=== PATIENT | male | born 1955 | race Caucasian/White ===

== ENCOUNTER → 2017-03-31 | Outpatient (CLI) | payer OTHER ==
[2017-03-31 12:57] LABS: Basophils % (A) 1 %; CH 31.7; CHCM 33.3; Eosinophils # (A) 0.2 k/uL (0-0.7); Eosinophils % (A) 2 %; HCT 42.1 % (39.0-53.0); HDW 2.52; Luc # (Auto) 0.18; Luc % (Auto) 2; Lymphocytes # (A) 4.5 k/uL (1.0-4.8); Lymphocytes % (A) 51 %; MCH 31.7 pg (25.0-35.0); MCHC 33.2 g/dL (31.0-37.0); MCV 95.5 fL (80.0-100.0); Mean Platelet Volume 7.6; Monocytes # (A) 0.4 k/uL (0-1.0); Monocytes % (A) 5 %; Neutrophils # (A) 3.4 k/uL (1.3-7.7); Neutrophils % (A) 39 %; RBC 4.41 m/uL (4.30-5.90); RDW 13.2 % (11.5-15.5); WBC 8.8 k/uL (3.8-10.6); WBC (Perox) 8.95
[2017-03-31 13:11] LABS: ALT 31 U/L (21-72); AST 24 U/L (17-59); Alkaline Phosphatase 63 U/L (38-126); Anion Gap 10 mmol/L; Blood Urea Nitrogen 17 mg/dL (9-20); Calcium 9.5 mg/dL (8.4-10.2); Carbon Dioxide 25 mmol/L (22-30); Chloride 107 mmol/L (98-107); Cholesterol 95 mg/dL (<200); Glucose 88 mg/dL (74-99); HDL Cholesterol 34 mg/dL (40-60); Non-African American GFR(MDRD) >60 (>60 ml/min/1.73 sqM); Potassium 4.1 mmol/L (3.5-5.1); Sodium 142 mmol/L (137-145); Total Protein 6.2 g/dL (6.3-8.2); Triglycerides 79 mg/dL (<150)
== END | disposition home or self-care (01) ==
LOC: LABWHC1 12:00
PROVIDERS: ATTEND Internal Medicine
DX: I10 Essential (primary) hypertension (principal); Z12.5 Encounter for screening for malignant neoplasm of prostate
CPT/HCPCS: 80061; 80053; 85025; 36415; G0103

== ENCOUNTER → 2017-09-25 | Outpatient (CLI) | payer OTHER ==
[2017-09-25 10:02] LABS: Basophils # (A) 0.1 k/uL (0-0.2); Basophils % (A) 1 %; CH 31.7; CHCM 32.8; Eosinophils # (A) 0.3 k/uL (0-0.7); Eosinophils % (A) 5 %; HCT 43.5 % (39.0-53.0); HDW 2.53; HGB 13.9 gm/dL (13.0-17.5); Luc # (Auto) 0.12; Luc % (Auto) 2; Lymphocytes # (A) 2.8 k/uL (1.0-4.8); Lymphocytes % (A) 38 %; MCH 31.1 pg (25.0-35.0); MCV 97.2 fL (80.0-100.0); Mean Platelet Volume 7.6; Monocytes # (A) 0.5 k/uL (0-1.0); Monocytes % (A) 6 %; Neutrophils # (A) 3.6 k/uL (1.3-7.7); Neutrophils % (A) 49 %; RBC 4.47 m/uL (4.30-5.90); RDW 14.4 % (11.5-15.5); WBC 7.3 k/uL (3.8-10.6); WBC (Perox) 7.65
[2017-09-25 11:39] LABS: ALT 44 U/L (21-72); AST 28 U/L (17-59); Alkaline Phosphatase 54 U/L (38-126); Anion Gap 6 mmol/L; Blood Urea Nitrogen 20 mg/dL (9-20); Calcium 9.3 mg/dL (8.4-10.2); Carbon Dioxide 30 mmol/L (22-30); Chloride 105 mmol/L (98-107); Cholesterol 109 mg/dL (<200); Glucose 98 mg/dL (74-99); HDL Cholesterol 37 mg/dL (40-60); Non-African American GFR(MDRD) >60 (>60 ml/min/1.73 sqM); Potassium 4.7 mmol/L (3.5-5.1); Sodium 141 mmol/L (137-145); Total Bilirubin 0.7 mg/dL (0.2-1.3); Total Protein 6.1 g/dL (6.3-8.2)
== END | disposition home or self-care (01) ==
LOC: LABWHC1 09:40
PROVIDERS: ATTEND Internal Medicine
DX: Z00.00 Encounter for general adult medical examination without abnormal findings (principal); R53.83 Other fatigue; C91.11 Chronic lymphocytic leukemia of B-cell type in remission; E29.1 Testicular hypofunction; E55.9 Vitamin D deficiency, unspecified
CPT/HCPCS: 36415; 80053; 80061; 82306; 84402; 84403; 84439; 84443; 84481; 85025

== ENCOUNTER 2018-06-02 10:54 | Day surgery (SDC) | payer MEDICARE, OTHER ==
[2018-06-01 10:21] VITALS: BMI 33.0
[~2018-06-02 10:54] MED LIST: LACTATED RINGERS 1,000 ML IV SCH; LIDOCAINE 1% 20 ML VIAL (10MG/ML) FOR IV START INTRADERMA PRN
[2018-06-02 11:15] VITALS: RESP 16; TEMP 97.7
[2018-06-02] MEDS ORDERED: PROPOFOL 10 MG/ML 20 ML VIAL IV ONE (12:06)
--- NOTE | 2018-06-02 12:29 | P.PCN ---
Date of Procedure: 06/02/18 Procedure(s) Performed: Procedure: Total colonoscopy. Preoperative diagnosis: Screening for neoplasia, patient has history of polyps. Postoperative diagnosis: Exam within normal limits. Preparation: HalfLytely prep. Sedation: Was provided by anesthesia. Brief clinical history: The patient is a 63-year-old male who is scheduled for this evaluation because of history of polyps. His last exam was in 2012. The patient has no abdominal complaints, bleeding or anemia. Procedure: With the patient on his left lateral decubitus position and after informed consent and adequate sedation, the perianal area was inspected and it did not show any fissures or fistulas. There were no masses felt on digital rectal examination. The Olympus CFQ 160L video colonoscope was then inserted in the rectum in the usual fashion and advanced to the cecum. The mucosa appeared healthy. No polyps or tumors were seen or any obvious diverticular disease or other pathology. I retroflexed the endoscope in the rectum before the endoscope was withdrawn. The patient tolerated the procedure well. Plan: The patient was reassured. He will follow up with you as planned and I recommended repeat exam in 5 years.
[2018-06-02 13:21] VITALS: BP 133/80; PULSE 60
== END 2018-06-02 13:36 | disposition home or self-care (01) ==
LOC: ORWHC2ENDO 10:54
DX: Z12.11 Encounter for screening for malignant neoplasm of colon (principal); Z86.010 Personal history of colon polyps; I10 Essential (primary) hypertension; E78.5 Hyperlipidemia, unspecified; G47.33 Obstructive sleep apnea (adult) (pediatric); G70.00 Myasthenia gravis without (acute) exacerbation; C94.80 Other specified leukemias not having achieved remission; Z99.89 Dependence on other enabling machines and devices
CPT/HCPCS: J2704; G0105; 45378

== ENCOUNTER → 2019-12-13 | Outpatient (CLI) | payer MEDICARE, OTHER ==
--- NOTE | 2019-12-13 12:43 | EST ---
EXERCISE STRESS DATE OF SERVICE: 12/13/2019 AGE: 64 SEX: Male HT: 5'10" WT: 230 pounds PROTOCOL: STAGE: III DURATION OF EXERCISE: 9 minutes 44 seconds HEART RATE REST: 58 BLOOD PRESSURE REST: 144/82 MAXIMUM HEART RATE ACHIEVED: 127 MAXIMUM BLOOD PRESSURE: 199/68 85% MPHR: 131 100% MPHR: 154 METS: 11.3 INDICATIONS: History of angina pectoris. CLINICAL INFORMATION: Baseline heart rate 58 beats per minute. Baseline blood pressure 144/82 mmHg. Baseline 12-lead ECG shows normal sinus rhythm, normal cardiac intervals, normal ST segments. The patient exercised on a Yemi protocol for 9 minutes 44 seconds achieving a peak heart rate of 127 beats per minute. Normal blood pressure response to exercise. There was no ECG evidence for ischemia. No arrhythmias were noted. A 0.5 to [address] depression was noted. No symptoms were noted. Normal blood pressure response to exercise. IMPRESSION: Good exercise capacity. No ECG evidence for ischemia. No arrhythmias. A 0.[address] depression noted. MMODL / IJN: [id number] /
== END | disposition home or self-care (01) ==
LOC: RADNMMAIN 08:30
PROVIDERS: ATTEND Internal Medicine
DX: I20.9 Angina pectoris, unspecified (principal)
CPT/HCPCS: 93017

== ENCOUNTER → 2021-04-02 | Outpatient (CLI) | payer MEDICARE, OTHER ==
--- NOTE | 2021-04-03 08:08 | CT ---
EXAMINATION TYPE: CT urogram wo/w con DATE OF EXAM: 04/02/2021 COMPARISON: None. HISTORY: Microscopic hematuria. CT DLP: 4017.2 mGycm, Automated Exposure Control for Dose Reduction was Utilized. CONTRAST: CT scan of the abdomen and pelvis is performed without oral and without and with IV Contrast, patient injected with 100 mL of Isovue M300. Urogram protocol with 3-D reconstructed images created on a [employer] workstation and reviewed. FINDINGS: KUB: Noncontrast images show single 3 mm nonobstructing calculus upper pole right kidney on axial ser ies 4 measures 31. No left-sided nephrolithiasis. Postcontrast images show symmetric corticomedullary uptake and excretion. There are scattered benign thin-walled cysts predominantly central or peripelv ic in location bilaterally. There is 1.9 cm partially exophytic thin-walled cyst posteriorly lower po le of the left kidney. No hydronephrosis identified. Satisfactory opacification of bilateral ureters without calculus or filling defect. Urinary bladder appears within normal limits in the midline of th e pelvis. LUNG BASES: Mild left basilar linear scarring. LIVER/GB: Liver is diffusely low dense relative to spleen consistent with mild diffuse fatty infiltra tion on noncontrast CT. Contracted gallbladder. PANCREAS: No significant abnormality is seen. SPLEEN: No significant abnormality is seen. ADRENALS: No significant abnormality is seen. BOWEL: Diverticula in the left and sigmoid colon. No CT evidence for acute diverticulitis. PROSTATE/SEMINAL VESICLES: Enlarged prostate consistent with BPH bulging on bladder base. LYMPH NODES: No greater than 1cm abdominal or pelvic lymph nodes are appreciated. OSSEOUS STRUCTURES: Slight scoliotic curvature. Straightened on sagittal images. Slight grade 1 retrolisthesis L3 on L4. Moderate to severe disc spac e narrowing with moderate spurring at L5-S1 level. Mild to moderate disc space narrowing L3-L4 level. [id number] multilevel anterior and lateral spurring. Moderate axial joint space loss and aceta bular spurring of both hips. Facet arthropathy lower lumbar levels. OTHER: No significant additional abnormality is seen. IMPRESSION: 1. There is nonobstructing 3 mm calculus upper pole level right kidney likely accounting for patient' s symptoms. 2. Enlarged prostate consistent with BPH, correlate clinically.
== END | disposition home or self-care (01) ==
LOC: RADCTMAIN 15:40
PROVIDERS: ATTEND Internal Medicine
DX: N20.0 Calculus of kidney (principal); N40.0 Benign prostatic hyperplasia without lower urinary tract symptoms
CPT/HCPCS: 82565; 84520; 74178; 36415; 74400; Q9967

== ENCOUNTER → 2023-05-05 | Outpatient (CLI) | payer MEDICARE, OTHER ==
--- NOTE | 2023-05-05 12:14 | CA ---
Exercise Nuclear Stress Test Report Name: Camden Holbrook Exam Date: 05/05/2023 10:56 Exam Location: [facility] Ht (in): 70 Wt (lb): 235 BSA: 2.24 Ordering Phys: Spenser Augustin MD Referring Phys: Demetria, Technologist: Camden Sánchez Age: 68 Gender: M : 1955 Procedure CPT: Indications: I25.10 ICD-10 Codes: Patient History: Medications: Meds past 24 hrs: Pretest Chest Pain: STRESS TEST Yemi Protocol Exercise Duration (min:sec): 10:[address] Depressions (mm): Angina Score: Mcintyre Score: Resting HR (bpm): 60 Peak HR (bpm): 151 Resting BP (mmHg): 141 / 79 Peak BP (mmHg): 194 / 77 MPHR: 150 Target HR: 128 % MPHR: 101 METS: 12.1 Total Dose: Peak Dose: Atropine: Double Product: 35681 BP Response: Stress Termination: TARGET HR REACHED/MAX EXERTION Stress Symptoms: NO SYMPTOMS Stress Summary: ECG ANALYSIS Resting ECG: Normal sinus rhythm normal axis normal intervals Stress ECG: Patient exercised on Yemi protocol for 10 minutes achieving 11 mets 85% of predicted maximum heart rate without chest pain . Patient had one and half millimeter ST segment depression in the inferolateral leads CONCLUSIONS Good exercise tolerance Abnormal stress test by EKG criteria Cardiolite portion of the stress test will be reported separately Dr. Juan Diego Fulton MD (Electronically Signed) Final Date: 05 May 2023 12:13
--- NOTE | 2023-05-07 07:44 | NM ---
EXAMINATION TYPE: NM stress cardiolite complete DATE OF EXAM: 05/05/2023 COMPARISON: NONE HISTORY: Chest pain or palpitations hypertension TECHNIQUE: After the intravenous administration of 9.6 mCi Tc 99m Sestamibi - Cardiolite resting SPE CT images acquired 45 minutes post injection. At peak stress 26.4 mCi Tc 99m Sestamibi - Stress images obtained 10 minutes post injection The patient was stressed on a treadmill reaching greater than 85% of predicted maximum heart rate. FINDINGS: No fixed defects are evident No reversible stress defects on Spect images Wall motion is normal Ejection fraction is calculated to be 69% %. IMPRESSION: 1. No stress-induced ischemic change.
== END | disposition home or self-care (01) ==
LOC: RADNMMAIN 09:16
PROVIDERS: ATTEND Internal Medicine
DX: I25.10 Atherosclerotic heart disease of native coronary artery without angina pectoris (principal); R94.31 Abnormal electrocardiogram [ECG] [EKG]
CPT/HCPCS: 93017; 78452; A9500

== ENCOUNTER 2023-07-02 06:42 | Day surgery (SDC) | payer MEDICARE, OTHER ==
[2023-06-30 13:02] VITALS: BMI 33.0
[~2023-07-02 06:42] MED LIST changes: -LIDOCAINE 1% 20 ML VIAL (10MG/ML) FOR IV START INTRADERMA PRN
[2023-07-02 07:26] VITALS: TEMP 97.8
[2023-07-02] MEDS ORDERED: PROPOFOL 10 MG/ML 20 ML VIAL IV ONE (07:46)
[2023-07-02] MEDS ORDERED: LIDOCAINE 2% INJ 20 MG/ML (2 ML VIAL) ONE (07:46)
--- NOTE | 2023-07-02 08:10 | P.PCN ---
Date of Procedure: 07/02/23 Procedure(s) Performed: Brief history: Patient is a pleasant 68-year-old white male scheduled for an elective upper endoscopy as well as colonoscopy as a part of evaluation of epigastric pain/heartburn for the last several months duration. He was started on lansoprazole 30 mg daily and symptoms have resolved completely. He scheduled for a colonoscopy as a part of screening for colorectal neoplasia. Procedure performed: Esophagogastroduodenoscopy with biopsy Colonoscopy with biopsy Preoperative diagnosis GERD Screening for colon cancer Anesthesia: MAC Procedure: After informed consent was obtained from the patient was brought into the endoscopy unit and IV sedation was administered by anesthesia under continuous monitoring. Initially upper endoscopy was done. The Olympus GF 160 video endoscope was inserted inserted into the mouth and esophagus intubated without any difficulty and was gradually advanced into the stomach and duodenum and carefully examined. The bulb and second part of the duodenum appeared normal. The scope was then withdrawn into the stomach adequately insufflated with air and upon careful examination the antrum appeared normal. In the gastric body revealed linear areas of erythema consistent with gastritis and biopsies were done from this area. Mucosa of the, cardia and fundus appeared normal. The scope was then withdrawn into the esophagus. The GE junction was located at 40 cm to the incisors. It appeared regular with no erythema erosions or ulcer ations. Rest of the esophagus appeared normal. Patient tolerated the procedure well. At this time the patient continued to remain sedation. Initial digital rectal examination was normal. Olympus CF 160 video colonoscope was then inserted into the rectum and gradually advanced to the cecum without any difficulty. Careful examination was performed as the scope was gradually being withdrawn. The prep was excellent. The cecum, ascending colon, appeared normal. In the transverse colon there was a 3-4 mm sessile polyp that was removed by cold biopsy. Rest of the transverse colon, descending colon, sigmoid colon and rectum appeared normal. Scattered left-sided diverticulosis. Retroflexion was performed in the rectum and no lesions were noted. Patient tolerated the procedure well. Impression: 1.Upper endoscopy revealed diffuse gastritis involving the gastric body with no evidence of peptic ulcer disease. 2.Colonoscopy revealed a 3 mm transverse colon polyp status post cold biopsy and scattered left-sided diverticulosis. Recommendations: Findings of this examination were discussed with the patient as well as his family. He was advised to follow with the biopsy results. If the biopsy result adenoma he can have a repeat colonoscopy in 5 years.
[2023-07-02 08:52] VITALS: BP 152/70; PULSE 58; RESP 20
== END 2023-07-02 08:52 | disposition home or self-care (01) ==
LOC: ORWHC2ENDO 06:42
PROVIDERS: ATTEND Internal Medicine Gastroenterology
DX: Z12.11 Encounter for screening for malignant neoplasm of colon (principal); D12.3 Benign neoplasm of transverse colon; K57.30 Diverticulosis of large intestine without perforation or abscess without bleeding; K29.50 Unspecified chronic gastritis without bleeding; K21.9 Gastro-esophageal reflux disease without esophagitis; I10 Essential (primary) hypertension; E78.5 Hyperlipidemia, unspecified; G70.00 Myasthenia gravis without (acute) exacerbation; G47.33 Obstructive sleep apnea (adult) (pediatric); Z79.82 Long term (current) use of aspirin; Z79.811 Long term (current) use of aromatase inhibitors; Z79.899 Other long term (current) drug therapy; Z98.890 Other specified postprocedural states
CPT/HCPCS: 88305; 45380; 43239; J2704; J2001

== ENCOUNTER → 2025-02-14 | Outpatient (CLI) | payer MEDICARE, OTHER ==
--- NOTE | 2025-02-14 15:20 | XR ---
EXAMINATION TYPE: XR KUB DATE OF EXAM: 02/14/2025 COMPARISON: CT angiogram 04/02/2021 HISTORY: Pain TECHNIQUE: Single supine KUB image of the abdomen is obtained FINDINGS: Small bowel demonstrates no evidence for dilatation or air fluid levels. Gas and fecal material is seen in non-distended colon. No convincing evidence for pneumoperitoneum within limitations of a supine exam. No unusual calcifications. The lung bases are clear. The osseous structures are intact. Mild dextrocurvature of the lumbar spine. Mild multilevel degenera tive disc disease of the visualized thoracolumbar spine. IMPRESSION: Overall nonobstructive bowel gas pattern. [facility], , 02/14/2025 3:17 PM
== END | disposition home or self-care (01) ==
LOC: RADXRMAIN 14:39
PROVIDERS: ATTEND Internal Medicine
DX: K57.32 Diverticulitis of large intestine without perforation or abscess without bleeding (principal)
CPT/HCPCS: 74018